=== PATIENT | male | born 1955 | race African-American/Black ===

== ENCOUNTER 2024-07-02 19:17 | Inpatient (IN) | payer MEDICARE, OTHER ==
[2024-07-02 20:01] LABS: #Basophils Less than 0.03 10x3/uL (0.0-0.2); %Basophils 0.2 % (0.0-1.0); %Eosinophils 2.7 % (0.0-10.0); %Lymphocytes 17.3 % (21.0-51.0); %Neutrophils 70.7 % (42.0-75.0); Hemoglobin 12.8 g/dL (14.0-18.0); Mean Corpuscular HGB CONC 32.8 g/dL (32.0-36.0); Mean Corpuscular Hemoglobin 31.2 pg (27.0-31.0); Mean Corpuscular Volume 95.1 fL (78.0-98.0); Mean Platelet Volume 10.5 fL (7.4-10.4); Platelet Count 234 10x3/uL (130-400); RBC Distribution Width 12.3 % (11.5-14.5)
[2024-07-02 20:20] LABS: Calc. Creatinine Clearance 0 mL/min (70-130); Estimated GFR 69
[2024-07-02 20:22] LABS: ALT (SGPT) 17 U/L (8-55); AST (SGOT) 21 U/L (5-34); Albumin 3.8 g/dL (3.4-4.8); Alkaline Phosphatase 95 U/L (40-110); Anion Gap 15 mmol/L (10-20); BUN (Urea Nitrogen) 16 mg/dL (8.4-25.7); Bilirubin, Total 0.3 mg/dL (0.2-1.2); Calcium 9.3 mg/dL (7.8-10.44); Carbon Dioxide 26 mmol/L (23-31); Chloride 104 mmol/L (98-107); Globulin 3.5 g/dL (2.4-3.5); Glucose 117 mg/dL (83-110); Protein, Total 7.3 g/dL (5.8-8.1); Sodium 141 mmol/L (136-145)
[2024-07-02 20:23] LABS: Acetaminophen Less than 10 mcg/mL (Less than 10); Alcohol Less than 10.0 mg/dL (Less than 10); Salicylate Less than 8.0 mg/dL (Less than 8.0)
[2024-07-02 20:27] LABS: Troponin I 0.014 ng/mL (< 0.028)
[2024-07-02 20:29] LABS: INR-International Normal Ratio 1.1; PTT 33.3 sec (22.9-36.1)
[2024-07-02] MEDS ORDERED: diphenhydrAMINE 50 MG/ML VIAL ONE (21:20)
[2024-07-02] MEDS ORDERED: Metoclopramide HCl 10 MG (2 mL) VIAL ONE (21:20)
[2024-07-02] MEDS ORDERED: Enoxaparin 40 MG (0.4 mL) SYRINGE SC SCH (22:42)
[2024-07-02] MEDS ORDERED: Ondansetron ODT 4 MG TAB PO PRN (22:42)
[2024-07-02] MEDS ORDERED: Acetaminophen 500 MG TAB ONE (22:48)
[2024-07-02] MEDS ORDERED: Gabapentin 300 MG CAP ONE (22:50)
[2024-07-02] MEDS ORDERED: hydrALAZINE 20 MG/ML VIAL SLOW IVP PRN (22:51)
[2024-07-02 23:31] LABS: Bacteria/HPF None Seen HPF (None Seen); Bilirubin Negative (Negative); Blood, Urine Negative (Negative); CAUTI Indications for Culture Pelvic or flank pain; Clarity Clear (Clear); Glucose, Urine (Dipstick) Normal (Negative); Ketone, Urine Negative (Negative); Leukocyte Negative Leu/uL (Negative); Nitrite Negative (Negative); Protein, Urine (Dipstick) Negative (Neg-Trace); RBC/HPF 0-3 HPF (0-3); Specific Gravity, Urine 1.024 (1.002-1.036); Squamous Epithelial 0-3 HPF (0-3); Urobilinogen Normal mg/dL (Less than 2); WBC/HPF 0-3 HPF (0-3)
[2024-07-02 23:38] LABS: Urine Culture Reflex No No
[2024-07-02 23:39] LABS: Amphetamine Not Detected (NotDetected); Barbiturates Screen Not Detected (NotDetected); Benzodiazepine Screen Not Detected (NotDetected); Cocaine Metabolite Screen Not Detected (NotDetected); Methadone Not Detected (NotDetected); Methamphetamine Not Detected (NotDetected); Opiate Screen Not Detected (NotDetected); Oxycodone Screen Not Detected (NotDetected); Phencyclidine (PCP) Not Detected (NotDetected); THC/Cannabinoid Screen Not Detected (NotDetected); Tricyclic Screen Not Detected (NotDetected)
[2024-07-03 00:05] LABS: Troponin I 0.012 ng/mL (< 0.028)
[2024-07-03 00:42] VITALS: BMI 34.7
[2024-07-03 04:25] LABS: #Basophils Less than 0.03 10x3/uL (0.0-0.2); %Basophils 0.3 % (0.0-1.0); %Eosinophils 2.9 % (0.0-10.0); %Lymphocytes 20.9 % (21.0-51.0); %Monocytes 6.6 % (0.0-10.0); Hemoglobin 11.7 g/dL (14.0-18.0); Mean Corpuscular HGB CONC 31.6 g/dL (32.0-36.0); Mean Corpuscular Hemoglobin 30.4 pg (27.0-31.0); Mean Corpuscular Volume 96.1 fL (78.0-98.0); Mean Platelet Volume 10.5 fL (7.4-10.4); Platelet Count 221 10x3/uL (130-400); RBC Distribution Width 12.1 % (11.5-14.5); Red Blood Cell (RBC) Count 3.85 mill/uL (4.70-6.10)
[2024-07-03 04:39] LABS: Calc. Creatinine Clearance 93 mL/min (70-130); Estimated GFR 77
[2024-07-03 04:41] LABS: ALT (SGPT) 13 U/L (8-55); AST (SGOT) 17 U/L (5-34); Albumin 3.2 g/dL (3.4-4.8); Alkaline Phosphatase 86 U/L (40-110); Anion Gap 10 mmol/L (10-20); BUN (Urea Nitrogen) 14 mg/dL (8.4-25.7); Bilirubin, Total 0.5 mg/dL (0.2-1.2); Calcium 8.9 mg/dL (7.8-10.44); Carbon Dioxide 27 mmol/L (23-31); Chloride 103 mmol/L (98-107); Globulin 3.4 g/dL (2.4-3.5); Glucose 232 mg/dL (83-110); Potassium 3.3 mmol/L (3.5-5.1); Protein, Total 6.6 g/dL (5.8-8.1); Sodium 137 mmol/L (136-145)
[2024-07-03] MEDS: Hydrochlorothiazide 25 MG TAB PO SCH (08:18)
[2024-07-03] MEDS: Apixaban 5 MG TAB PO SCH (08:18)
[2024-07-03] MEDS: Pregabalin 50 MG CAP PO SCH (08:18)
[2024-07-03] MEDS: Rosuvastatin 20 MG TAB PO SCH (08:18)
[2024-07-03] MEDS: metFORMIN 500 MG TAB PO SCH (08:18)
[2024-07-03] MEDS: Metoprolol Succinate XL 50 MG ER.TAB PO SCH (08:18)
[2024-07-03] MEDS: Pantoprazole 40 MG DR.TAB PO SCH (08:18)
[2024-07-03] MEDS: Acetaminophen 325 MG TAB PO PRN (08:19)
[2024-07-03] MEDS: Potassium Chloride 20 MEQ TAB PO SCH (08:23)
[2024-07-03] MEDS: Saxagliptin 5 MG TABLET PO SCH (11:09)
[2024-07-04 05:00] LABS: #Basophils Less than 0.03 10x3/uL (0.0-0.2); %Basophils 0.2 % (0.0-1.0); %Eosinophils 2.2 % (0.0-10.0); %Lymphocytes 16.8 % (21.0-51.0); %Monocytes 7.2 % (0.0-10.0); %Neutrophils 73.3 % (42.0-75.0); Hematocrit 36.3 % (42.0-52.0); Hemoglobin 11.5 g/dL (14.0-18.0); Mean Corpuscular HGB CONC 31.7 g/dL (32.0-36.0); Mean Corpuscular Hemoglobin 30.1 pg (27.0-31.0); Mean Platelet Volume 10.5 fL (7.4-10.4); Platelet Count 211 10x3/uL (130-400); RBC Distribution Width 12.1 % (11.5-14.5); Red Blood Cell (RBC) Count 3.82 mill/uL (4.70-6.10)
[2024-07-04 05:26] LABS: ALT (SGPT) 12 U/L (8-55); AST (SGOT) 12 U/L (5-34); Albumin 3.1 g/dL (3.4-4.8); Alkaline Phosphatase 94 U/L (40-110); Anion Gap 11 mmol/L (10-20); BUN (Urea Nitrogen) 18 mg/dL (8.4-25.7); Bilirubin, Total 0.3 mg/dL (0.2-1.2); Calc. Creatinine Clearance 87 mL/min (70-130); Calcium 8.9 mg/dL (7.8-10.44); Carbon Dioxide 25 mmol/L (23-31); Chloride 102 mmol/L (98-107); Estimated GFR 71; Globulin 3.5 g/dL (2.4-3.5); Glucose 249 mg/dL (83-110); Potassium 3.5 mmol/L (3.5-5.1); Protein, Total 6.6 g/dL (5.8-8.1); Sodium 134 mmol/L (136-145)
[2024-07-04] MEDS ORDERED: Dextrose 5% in Water 1,000 ML IV PRN (08:04)
[2024-07-04] MEDS ORDERED: Insulin Lispro 100 UNIT/ML 10 ML VIAL SC PRN (08:04)
[2024-07-04] MEDS ORDERED: Glucagon 1 MG/ML KIT IM PRN (08:04)
[2024-07-04] MEDS ORDERED: Dextrose 50% Abboject 50 ML SYRINGE SLOW IVP PRN (08:04)
[2024-07-04] MEDS: traMADol HCl 50 MG TAB PO PRN (13:16)
[2024-07-04] MEDS: Insulin Lispro 100 UNIT/ML 10 ML VIAL SC PRN (13:20)
[2024-07-04] MEDS: Losartan 25 MG TAB PO SCH (14:50)
[2024-07-04] MEDS ORDERED: hydrALAZINE 20 MG/ML VIAL SLOW IVP PRN (17:49)
[2024-07-04] MEDS: Cyclobenzaprine 10 MG TAB PO SCH (20:34)
[2024-07-05 05:07] LABS: #Basophils 0.03 10x3/uL (0.0-0.2); %Basophils 0.3 % (0.0-1.0); %Eosinophils 3.3 % (0.0-10.0); %Lymphocytes 23.3 % (21.0-51.0); %Monocytes 7.3 % (0.0-10.0); %Neutrophils 65.6 % (42.0-75.0); Hematocrit 38.8 % (42.0-52.0); Hemoglobin 12.8 g/dL (14.0-18.0); Mean Corpuscular Hemoglobin 30.9 pg (27.0-31.0); Mean Corpuscular Volume 93.7 fL (78.0-98.0); Mean Platelet Volume 10.6 fL (7.4-10.4); Platelet Count 219 10x3/uL (130-400); RBC Distribution Width 11.9 % (11.5-14.5); Red Blood Cell (RBC) Count 4.14 mill/uL (4.70-6.10)
[2024-07-05 05:30] LABS: ALT (SGPT) 12 U/L (8-55); AST (SGOT) 13 U/L (5-34); Albumin 3.4 g/dL (3.4-4.8); Alkaline Phosphatase 84 U/L (40-110); Anion Gap 15 mmol/L (10-20); BUN (Urea Nitrogen) 15 mg/dL (8.4-25.7); Bilirubin, Total 0.5 mg/dL (0.2-1.2); Calc. Creatinine Clearance 92 mL/min (70-130); Calcium 9.2 mg/dL (7.8-10.44); Carbon Dioxide 25 mmol/L (23-31); Chloride 98 mmol/L (98-107); Estimated GFR 76; Globulin 3.8 g/dL (2.4-3.5); Glucose 122 mg/dL (83-110); Potassium 3.6 mmol/L (3.5-5.1); Protein, Total 7.2 g/dL (5.8-8.1); Sodium 134 mmol/L (136-145)
[2024-07-05] MEDS ORDERED: Losartan 25 MG TAB PO SCH (09:00)
[2024-07-05] MEDS: Losartan 25 MG TAB PO SCH (09:28)
[2024-07-05 12:22] VITALS: BP 170/80; TEMP 98.3
== END 2024-07-05 16:08 | disposition home or self-care (01) | DRG 312 ==
LOC: ERS 19:17 → 2NO 22:46 → OBSVTOIN 22:46 → 2NO 07-03 00:05
PROVIDERS: ADMIT Family Medicine; ATTEND Family Medicine
DX: R55 Syncope and collapse (principal); I48.91 Unspecified atrial fibrillation; G47.33 Obstructive sleep apnea (adult) (pediatric); E78.5 Hyperlipidemia, unspecified; I10 Essential (primary) hypertension; Z96.652 Presence of left artificial knee joint; E87.6 Hypokalemia; E11.40 Type 2 diabetes mellitus with diabetic neuropathy, unspecified; Z88.5 Allergy status to narcotic agent; Z88.2 Allergy status to sulfonamides
CPT/HCPCS: 36415; 36416; 70450; 71045; 72125; 72170; 80053; 80306; 80307; 81001; 83880; 84484; 85025; 85610; 85730; 93005; 93306; 93880; 96374; 96375; G0378; J1200; J1815; J2765